=== PATIENT | male | born 1985 | race Caucasian/White ===

== ENCOUNTER 2021-09-02 04:28 | Emergency (ER) | payer MEDICAID ==
[~2021-09-02] VITALS: Ht 180.3 cm; Wt 81.6 kg
[2021-09-02 04:30] VITALS: BP 138/66
--- NOTE | 2021-09-02 05:05 | NUR ---
35 YO MALE C/O PAINFUL ERECTION FOR 1 HOUR AFTER TAKING VIAGRA. PT HAS TAKEN VIAGRA IN THE PAST WITHOUT ANY ISSUES. PT STATES THAT THERE IS PAIN. NO PHM
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
== END 2021-09-02 05:12 | disposition left against medical advice (07) ==
LOC: MED 04:28
DX: N48.89 Other specified disorders of penis (principal)
CPT/HCPCS: 99281

== ENCOUNTER 2021-10-10 03:40 | Emergency (ER) | payer MEDICAID ==
[~2021-10-10] VITALS: Ht 180.3 cm; Wt 86.2 kg
[2021-10-10 03:44] VITALS: BP 158/86
--- NOTE | 2021-10-10 03:55 | NUR ---
PT AMBULATED TO BED 08.
--- NOTE | 2021-10-10 04:10 | NUR ---
PATIENT HERE WITH COMPLAINT OF BACK PAIN THAT STARTED TODAY FOR UNKNOWN REASON. 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 RATES PAIN 5/10. DENIES ANY BACK INJURY OR FALL. NO KNOWN PAST MEDICAL HISTORY OR SURGERIES. PATIENT IN NO ACUTE DISTRESS. BREATHING EVENLY AND UNLABORED. ALL SAFETY MEASURES IN PLACE. WILL CONTINUE TO MONITOR.
[2021-10-10] MEDS ORDERED: KETOROLAC 60 MG/2 ML VIAL IM ONE (04:25)
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
== END 2021-10-10 04:45 | disposition left against medical advice (07) ==
LOC: MED 03:40
DX: S33.9XXA Sprain of unspecified parts of lumbar spine and pelvis, initial encounter (principal); F17.210 Nicotine dependence, cigarettes, uncomplicated; F12.90 Cannabis use, unspecified, uncomplicated; X58.XXXA Exposure to other specified factors, initial encounter; Y93.89 Activity, other specified; Y92.89 Other specified places as the place of occurrence of the external cause; Y99.8 Other external cause status
CPT/HCPCS: 72110; 99283

== ENCOUNTER 2021-11-07 23:43 | Emergency (ER) | payer MEDICAID ==
[~2021-11-07] VITALS: Ht 180.3 cm; Wt 87.8 kg
[2021-11-07 23:48] VITALS: BP 151/82
--- NOTE | 2021-11-08 01:10 | NUR ---
Called for Pt in the lobby, no answer. Was notified by a person in the lobby that he might be in the restroom.
--- NOTE | 2021-11-08 01:23 | NUR ---
Looked for pt a second time, he was still in the restroom. Dwain from admitting knocked on the door to notify him he was being called. He did not come out.
--- NOTE | 2021-11-08 02:25 | NUR ---
Pt ambulated to bed 06.
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
--- NOTE | 2021-11-08 02:57 | NUR ---
Dr. Alfaro examining patient.
[2021-11-08] MEDS ORDERED: ACET-10509 PO (03:20)
[2021-11-08] MEDS ORDERED: SULF-59 PO (03:20)
[2021-11-08] MEDS ORDERED: SULFAMETH/TRIMETH DS 800/160MG 1 TAB PO ONE (03:20)
--- NOTE | 2021-11-08 03:24 | NUR ---
Patient discharged with v/s stable. Written and verbal after care instructions given and explained. Patient alert, oriented and verbalized understanding of instructions. Ambulatory with steady gait. All questions addressed prior to discharge. ID band removed. Patient advised to follow up with PMD. Rx of tylenol and bactrim given. Patient educated on indication of medication including possible reaction and side effects. Opportunity to ask questions provided and answered.
== END 2021-11-08 03:24 | disposition home or self-care (01) ==
LOC: MED 23:43
DX: L03.116 Cellulitis of left lower limb (principal)
CPT/HCPCS: 99283

== ENCOUNTER 2022-07-09 17:40 | Emergency (ER) | payer MEDICAID ==
[~2022-07-09] VITALS: Ht 180.3 cm; Wt 78.9 kg
[~2022-07-09 17:40] MED LIST: ACET-10509 PO; SULF-59 PO
[2022-07-09 17:45] VITALS: BP 147/75
--- NOTE | 2022-07-09 17:50 | NUR ---
OLIVERIO NUNEZ AT BEDSIDE FOR EVALUATION
[2022-07-09] MEDS ORDERED: KETOROLAC 30 MG/ML VIAL IM ONE (18:00)
[2022-07-09] MEDS ORDERED: BACITRACIN OINT 500 UNITS/GM PKT TP ONE (18:00)
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
--- NOTE | 2022-07-09 18:04 | NUR ---
ATTEMPTED TO IRRIGATE WOUND. PT STATED " CAN I PLACE IT ON MYSELF BECAUSE IT HURTS". PT GIVEN DAMP GAUZE WITH STERILE WATER AND SELF APPLIED.
[2022-07-09] MEDS ORDERED: [UNRECOGNIZED DRUG - CODE] TP (18:16)
[2022-07-09] MEDS ORDERED: BACI1PAC6 TP (18:16)
[2022-07-09] MEDS ORDERED: IBUP-2213 PO (18:16)
--- NOTE | 2022-07-09 18:16 | NUR ---
ATTEMPT TO MEDICATE PT. PT REFUSED AT THIS TIME "I NEED A MINUTE"
--- NOTE | 2022-07-09 18:20 | NUR ---
PT REFUSED MED AND WOUND DRESSING. OLIVERIO NUNEZ MADE AWARE
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
--- NOTE | 2022-07-09 18:35 | NUR ---
The patient's care was reviewed and supervised by Opal Strauss RN.
[2022-07-10] MEDS ORDERED: BACI1PAC6 TP (08:54)
== END 2022-07-09 18:35 | disposition home or self-care (01) ==
LOC: MED 17:40
DX: T21.12XA Burn of first degree of abdominal wall, initial encounter (principal); T23.122A Burn of first degree of single left finger (nail) except thumb, initial encounter
CPT/HCPCS: 16000; 99283; J1885

== ENCOUNTER 2022-07-10 01:00 | Emergency (ER) | payer MEDICAID ==
[~2022-07-10] VITALS: Ht 180.3 cm; Wt 83.9 kg
[~2022-07-10 01:00] MED LIST changes: +BACI1PAC6 TP; +IBUP-2213 PO; +[UNRECOGNIZED DRUG - CODE] TP
[2022-07-10 01:13] VITALS: BP 125/78
--- NOTE | 2022-07-10 02:26 | NUR ---
PATIENT LEFT WITHOUT BEING SEEN BY DR. Hancock. NO FURTHER CARE PROVIDED FOR PATIENT.
[2022-07-10] MEDS ORDERED: BACI1PAC6 TP (08:54)
== END 2022-07-10 02:26 | disposition left against medical advice (07) ==
LOC: MED 01:00
DX: R11.0 Nausea (principal); Z53.21 Procedure and treatment not carried out due to patient leaving prior to being seen by health care provider

== ENCOUNTER 2022-07-10 08:26 | Emergency (ER) | payer MEDICAID ==
[~2022-07-10] VITALS: Ht 180.3 cm; Wt 80.3 kg
[2022-07-10 08:28] VITALS: BP 141/87
--- NOTE | 2022-07-10 08:41 | NUR ---
PT AMB TO BED 3.
--- NOTE | 2022-07-10 08:42 | NUR ---
Justice masterson in [facility] - 07/10/22 at 0842 by [email or web address] PT AMBULATED TO ER BED 3
[2022-07-10] MEDS ORDERED: BACITRACIN OINT 500 UNITS/GM PKT TP ONE (08:50)
[2022-07-10] MEDS ORDERED: BACI1PAC6 TP (08:54)
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
--- NOTE | 2022-07-10 09:14 | NUR ---
Patient discharged with v/s stable. Written and verbal after care instructions given and explained. Patient alert, oriented and verbalized understanding of instructions. Ambulatory with . All questions addressed prior to discharge. ID band removed. Patient advised to follow up with PMD. Rx of bacitracin (sent) given. Patient educated on indication of medication including possible reaction and side effects. Opportunity to ask questions provided and answered.
[2022-07-10 09:15] VITALS: BP 141/87
== END 2022-07-10 09:14 | disposition home or self-care (01) ==
LOC: MED 08:26
DX: T21.12XA Burn of first degree of abdominal wall, initial encounter (principal); T23.122A Burn of first degree of single left finger (nail) except thumb, initial encounter; T31.0 Burns involving less than 10% of body surface; F17.210 Nicotine dependence, cigarettes, uncomplicated; F15.90 Other stimulant use, unspecified, uncomplicated; Z72.89 Other problems related to lifestyle; Z71.6 Tobacco abuse counseling
CPT/HCPCS: 99282

== ENCOUNTER 2022-07-14 01:47 | Emergency (ER) | payer MEDICAID ==
[~2022-07-14] VITALS: Ht 180.3 cm; Wt 81.6 kg
[2022-07-14 01:50] VITALS: BP 131/83
--- NOTE | 2022-07-14 01:53 | NUR ---
TO LOBBY A/W BED AMBULATORY
[2022-07-14 02:00] VITALS: BP 131/83
--- NOTE | 2022-07-14 03:17 | NUR ---
PT CALLED, NO REPONSE
[2022-07-14] MEDS ORDERED: MUPI2CRE22 TP (12:20)
== END 2022-07-14 03:17 | disposition left against medical advice (07) ==
LOC: MED 01:47
DX: L98.9 Disorder of the skin and subcutaneous tissue, unspecified (principal); Z53.21 Procedure and treatment not carried out due to patient leaving prior to being seen by health care provider

== ENCOUNTER 2022-07-14 10:39 | Emergency (ER) | payer MEDICAID ==
[~2022-07-14] VITALS: Ht 180.3 cm; Wt 78.0 kg
--- NOTE | 2022-07-14 10:52 | NUR ---
CALLED PT NOT IN LOBBY OR PARKING LOT
--- NOTE | 2022-07-14 11:04 | NUR ---
CALLED PT NOT IN LOBBY OR PARKING LOT
[2022-07-14 11:16] VITALS: BP 133/87
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
--- NOTE | 2022-07-14 12:13 | NUR ---
OLIVERIO BERG AT PT SIDE FOR EVAL
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
[2022-07-14] MEDS ORDERED: MUPI2CRE22 TP (12:20)
== END 2022-07-14 12:19 | disposition home or self-care (01) ==
LOC: MED 10:39
DX: S31.109A Unspecified open wound of abdominal wall, unspecified quadrant without penetration into peritoneal cavity, initial encounter (principal); S21.202A Unspecified open wound of left back wall of thorax without penetration into thoracic cavity, initial encounter; F15.90 Other stimulant use, unspecified, uncomplicated; Z79.899 Other long term (current) drug therapy; X58.XXXA Exposure to other specified factors, initial encounter; Y93.89 Activity, other specified; Y92.89 Other specified places as the place of occurrence of the external cause; Y99.8 Other external cause status
CPT/HCPCS: 99283

== ENCOUNTER 2022-12-02 20:46 | Emergency (ER) | payer MEDICAID ==
[~2022-12-02 20:46] MED LIST changes: +BACI-416 TP; -BACI1PAC6 TP; +MUPI2CRE22 TP
--- NOTE | 2022-12-02 20:55 | NUR ---
CALLED INTO TRIAGE. PT WALKED IN THEN TURNED AROUND AND WALKED OUT SAYING HE HAD TO DO SOMETHING. AMBULATES WITH STEADY GAIT. PT LWBS
--- NOTE | 2022-12-02 20:55 | NUR ---
Justice masterson in [facility] - 12/02/22 at 2132 by CASSIE CALLED INTO TRIAGE. PT WALKED IN THEN TURNED AROUND AND WALKED OUT SAYING HE HAD TO DO SOMETHING. AMBULATES WITH STEADY GAIT
[2022-12-02] MEDS ORDERED: [UNRECOGNIZED DRUG - CODE] MC (23:35)
[2022-12-02] MEDS ORDERED: TERB-5 PO (23:35)
== END 2022-12-02 20:55 | disposition left against medical advice (07) ==
LOC: MED 20:46
DX: M79.673 Pain in unspecified foot (principal); Z53.21 Procedure and treatment not carried out due to patient leaving prior to being seen by health care provider

== ENCOUNTER 2022-12-02 22:24 | Emergency (ER) | payer MEDICAID, OTHER ==
[~2022-12-02] VITALS: Ht 180.3 cm; Wt 90.7 kg
[2022-12-02 22:29] VITALS: BP 114/43
--- NOTE | 2022-12-02 22:40 | NUR ---
PT TO 8
--- NOTE | 2022-12-02 23:03 | NUR ---
37YR OLD MALE BIB SELF C/O L FOOT PAIN. PT DENIES ANY INJURY OR TRAUMA. PT STATES HE HAS "BLISTER LIKE CALLOUS" ON TIPS OF TOES. PT STATES HE IS ON HIS FEET DUE TO HIS JOB. NO SWELLING OR EDEMA TO FOOT. NKDA NO HX
--- NOTE | 2022-12-02 23:29 | NUR ---
Patient being evaluated by physician at bedside.
[2022-12-02] MEDS ORDERED: TERB-5 PO (23:35)
[2022-12-02] MEDS ORDERED: IBUPROFEN 800 MG TAB PO ONE (23:35)
[2022-12-02] MEDS ORDERED: [UNRECOGNIZED DRUG - CODE] MC (23:35)
--- NOTE | 2022-12-02 23:53 | NUR ---
Patient discharged with v/s stable. Written and verbal after care instructions given and explained. Patient alert, oriented and verbalized understanding of instructions. Ambulatory with steady gait. All questions addressed prior to discharge. ID band removed. Patient advised to follow up with PMD. Rx of TERBINAFINE HCI given.
== END 2022-12-02 23:53 | disposition home or self-care (01) ==
LOC: MED 22:24
DX: B35.1 Tinea unguium (principal)
CPT/HCPCS: 99282; 99283

== ENCOUNTER 2023-06-04 06:25 | Emergency (ER) | payer MEDICAID ==
[~2023-06-04] VITALS: Ht 180.3 cm; Wt 88.5 kg
[~2023-06-04 06:25] MED LIST changes: -BACI-416 TP; +BACI-418 TP; +TERB-5 PO; +[UNRECOGNIZED DRUG - CODE] MC
[2023-06-04 07:00] VITALS: BP 143/73; PULSE 89; RESP 16; TEMP 97.8; O2SAT 98
--- NOTE | 2023-06-04 07:00 | NUR ---
to bed ambulatory
--- NOTE | 2023-06-04 07:24 | NUR ---
CONTINUATION OF CARE, PT STANDING AT BEDSIDE WAITING FOR MD
--- NOTE | 2023-06-04 07:25 | NUR ---
37YO M PRESENTS W/TESTICULAR PAIN, ABSCESS W/SWELLING X 2 DAYS. PT DENIES FEVER, CHILLS, REDNESS, N,V,D,C. NAD.
[2023-06-04] MEDS ORDERED: HYD1C TP (07:42)
--- NOTE | 2023-06-04 07:46 | NUR ---
Patient discharged with v/s stable. Written and verbal after care instructions given and explained. Patient alert, oriented and verbalized understanding of instructions. Ambulatory with steady gait. All questions addressed prior to discharge. ID band removed. Patient advised to follow up with PMD. Rx of HYDROCORTISONE given. Opportunity to ask questions provided and answered.
--- NOTE | 2023-06-04 08:39 | NUR ---
The patient's care was reviewed and supervised by LINDA WILKINS RN.
== END 2023-06-04 07:46 | disposition home or self-care (01) ==
LOC: MED 06:25
DX: R21 Rash and other nonspecific skin eruption (principal); R23.3 Spontaneous ecchymoses; Z79.899 Other long term (current) drug therapy; Z79.1 Long term (current) use of non-steroidal anti-inflammatories (NSAID); Z79.2 Long term (current) use of antibiotics
CPT/HCPCS: 99282